=== PATIENT | female | born 1950 | race Caucasian/White ===

== ENCOUNTER 2017-12-11 14:40 | Emergency (ER) | payer MEDICARE, OTHER ==
[~2017-12-11] VITALS: Ht 157.5 cm; Wt 69.1 kg
[~2017-12-11 14:40] MED LIST: ADV50250 IH; CYCL-1 PO; FLUO20CA39 PO; HYDR-569 PO; LISI1TAB13 PO; METF-438 PO
[2017-12-11 14:43] VITALS: BP 99/68
== END 2017-12-11 15:53 | disposition home or self-care (01) ==
LOC: ER 14:40
DX: S60.221A Contusion of right hand, initial encounter (principal); W18.49XA Other slipping, tripping and stumbling without falling, initial encounter; Y93.89 Activity, other specified; Y92.89 Other specified places as the place of occurrence of the external cause; Y99.9 Unspecified external cause status
CPT/HCPCS: 73130; 99284

== ENCOUNTER 2021-10-29 12:18 | Day surgery (SDC) | payer MEDICARE, BC ==
[2021-10-23 11:55] LABS: CLARITY,URINE SLIGHTLY CLOUDY (Clear); COLOR,URINE YELLOW (Yellow); GLUCOSE, URINE NEGATIVE (Neg); KETONES,URINE NEGATIVE (Neg); LEUKOCYTE ESTERASE ,URINE SMALL (Neg); NITRITES, URINE NEGATIVE (Neg); OCCULT BLOOD,URINE NEGATIVE (Neg); PROTEIN,URINE NEGATIVE (Neg); UROBILINOGEN,URINE 0.2 E.U/dL (0.2-1.0)
[2021-10-23 11:58] LABS: UA COLLECTION TYPE CLN CATCH MIDSTREAM
[2021-10-23 12:00] LABS: BASOPHILS # (AUTO) 0.1 X10'3 (0-0.2); BASOPHILS % (AUTO) 0.9 % (0-1); EOSINOPHILS # (AUTO) 0.2 X10'3 (0-0.9); EOSINOPHILS % (AUTO) 2.3 % (0-6); LYMPHOCYTES # (AUTO) 3.1 X10'3 (1.1-4.8); LYMPHOCYTES % (AUTO) 41.1 % (21-51); MEAN CORPUSCULAR HEMOGLOBIN 29.4 PG (27.0-31.0); MEAN CORPUSCULAR HGB CONC 32.7 g/dL (33.0-36.5); MEAN CORPUSCULAR VOLUME 89.9 FL (78-98); MEAN PLATELET VOLUME 7.8 FL (7.4-10.4); MONOCYTES # (AUTO) 0.7 X10'3 (0-0.9); MONOCYTES % (AUTO) 9.1 % (2-12); NEUTROPHILS # (AUTO) 3.6 X10'3 (1.8-7.7); NEUTROPHILS % (AUTO) 46.6 % (42-75); PRE OP HEMATOCRIT 35.1 % (35.0-45.0); PRE OP HEMOGLOBIN 11.5 g/dL (12.0-16.0); PRE OP PLATELET COUNT 410 X10'3 (140-440); RED CELL DISTRIBUTION WIDTH 13.9 % (11.5-14.5)
[2021-10-23 12:07] LABS: ALBUMIN 4.1 G/DL (3.4-5.0); ALBUMIN/GLOBULIN RATIO 1.1 (1.1-1.5); ALKALINE PHOSPHATASE 103 IU/L (46-116); BLOOD UREA NITROGEN 21 MG/DL (7-18); BUN/CREATININE RATIO 22.6 (6.6-38.0); CALCIUM 9.6 MG/DL (8.5-10.1); CHLORIDE 103 MMOL/L (99-107); CREATININE 0.93 MG/DL (0.40-0.90); PRE OP ALT 26 U/L (30-65); PRE OP ANION GAP 10 (8-16); PRE OP AST 31 U/L (10-37); PRE OP BILIRUB, TOTAL 0.3 MG/DL (0.0-1.0); PRE OP GLUCOSE 108 MG/DL (70-104); PRE OP SODIUM 140 MMOL/L (135-145); TOTAL CARBON DIOXIDE 26.7 MMOL/L (24-32); TOTAL PROTEIN 7.8 G/DL (6.4-8.2); eGFR 59 ML/MIN
[2021-10-23 12:17] LABS: BACTERIA,URINE 4+ /HPF (Neg); RBC,URINE 0-2 /HPF (0-2); SQUAMOUS EPITHELIAL CELL,UR MODERATE /LPF (FEW); WBC CLUMPS,URINE MANY /HPF (NEGATIVE)
[2021-10-29] VITALS (7 sets, daily range): BP systolic 105–135; BP diastolic 64–77
[~2021-10-29] VITALS: Ht 157.5 cm; Wt 69.2 kg
[~2021-10-29 12:18] MED LIST changes: -ADV50250 IH; +ALBU8.5H17 IH; +AMLO5TAB16 PO; +ATOR40TA72 PO; +GUAI600T45 PO; -HYDR-569 PO; -LISI1TAB13 PO; +LOSA100T57 PO; +PANT40TA54 PO; +albuterol 2.5 MG/3 ML nebule NEB PRN; +ceFOXitin 2GM-NS 100mL ADDvant 100 ML IV ONE; +famotidine 20mg tablet PO ONE; +ringers solution, lacted 1,000 ML IV SCH
[2021-10-29] MEDS ORDERED: BUPIVAcaine/PF 2.5 mg/ml (0.25%) 30ml vial ONE (14:25)
[2021-10-29] MEDS ORDERED: sevoflurane 250ml liquid IH ONE (14:44)
[2021-10-29] MEDS ORDERED: midazolam 1 mg/ML 2ml injection ONE (14:45)
[2021-10-29] MEDS ORDERED: fentaNYL/PF 50MCG/1 ML 2ML syringe ONE (14:45)
[2021-10-29] MEDS ORDERED: ringers solution, lacted 1,000 ML IV SCH (14:55)
[2021-10-29] MEDS ORDERED: ondansetron/PF 4mg/2ml inj IV PRN (14:55)
[2021-10-29] MEDS ORDERED: proCHLORperazine 10 MG/2 ml inj IV PRN (14:55)
[2021-10-29] MEDS ORDERED: meperidine/PF 25mg/ml syringe IV PRN ×3 (14:55)
[2021-10-29] MEDS ORDERED: morphine 2 MG/ML inj. syringe IV PRN (14:55)
[2021-10-29] MEDS ORDERED: morphine 4 MG/ML inj SYRINge IV PRN (14:55)
[2021-10-29] MEDS ORDERED: ondansetron/PF 4mg/2ml inj ONE (15:19)
[2021-10-29] MEDS ORDERED: propofol inj 20 ML IV ONE (15:19)
[2021-10-29] MEDS ORDERED: dexamethasone sod phosphate 4mg/ml inj. ONE (15:19)
--- NOTE | 2021-10-29 15:37 | NUR ---
Received from OR via [facility] , accompanied by Anesthesiologist DR GUILLORY and report given by Anesthesiolgist. PT PRESENTS WITH 20G RIGHT HAND, LR @100MLS/HR, VSS. Addendum: 10/29/21 at 1641 by Diane Chambers RN, RN Amended: Links added.
--- NOTE | 2021-10-29 16:27 | NUR ---
PATIENT DISCHARGED FROM PACU IN STABLE CONDITION AFTER WRITTEN AND VERBAL DISCHARGE INSTRUCTIONS GIVEN. PATIENT GAVE VERBAL UNDERSTANDING OF INSTRUCTIONS GIVEN. PATIENT LEFT FACILITY VIA WHEELCHAIR WITH RN. PT BILLWEN OUT TO PRIVATE VEHICLE WHERE PT'S DROVE HER HOME. Addendum: 10/29/21 at 1642 by Diane Chambers RN, RN Amended: Links added.
== END 2021-10-29 16:27 | disposition home or self-care (01) ==
LOC: PAS 12:18
PROVIDERS: ATTEND Obstetrics & Gynecology Obstetrics
DX: N89.8 Other specified noninflammatory disorders of vagina (principal); N81.6 Rectocele; N81.10 Cystocele, unspecified; N95.0 Postmenopausal bleeding; N94.89 Other specified conditions associated with female genital organs and menstrual cycle; F41.9 Anxiety disorder, unspecified; M19.90 Unspecified osteoarthritis, unspecified site; F32.9 Major depressive disorder, single episode, unspecified; E11.9 Type 2 diabetes mellitus without complications; I10 Essential (primary) hypertension; E78.5 Hyperlipidemia, unspecified; M81.0 Age-related osteoporosis without current pathological fracture; Z90.710 Acquired absence of both cervix and uterus; Z98.51 Tubal ligation status; Z98.890 Other specified postprocedural states; Z79.899 Other long term (current) drug therapy
CPT/HCPCS: 36415; 57105; 71046; 80053; 81001; 82948; 85025; 86885; 86900; 86901; 87077; 87088; 87186; 87811; J0694; J1100; J2250; J2405; J2704; J3010; J3490; J7030; J7120; Z7506; Z7512; 88305; A4618; A7000